=== PATIENT | female | born 1945 | race Caucasian/White ===

== ENCOUNTER 2018-12-23 12:57 | Day surgery (SDC) | payer MEDICARE, OTHER, SELFPAY ==
[2018-12-14 13:00] VITALS: BMI 19.5
[2018-12-23] VITALS (14 sets, daily range): BP systolic 97–149; BP diastolic 34–78; PULSE 61–87; RESP 12–21; TEMP 36.1–37; O2SAT 97–100; BMI 19.9
--- NOTE | 2018-12-23 06:00 | DI.RAD.S_ITS ---
PROCEDURE: XR KNEE RT 1TO2V INDICATIONS: post op films TECHNIQUE: 2 view(s) of the knee acquired. COMPARISON: None. FINDINGS: Bones: Patient is status post knee joint arthroplasty. Hardware components are in expected positions. Visualized bony structures are intact. Soft tissues: Overlying postoperative changes are noted. IMPRESSION: Normal examination after a right total knee arthroplasty. Dictated by: Scott Bansal M.D. on 12/23/2018 at 17:16 Approved by: Scott Bansal M.D. on 12/23/2018 at 17:17
--- NOTE | 2018-12-23 13:26 | P.OP_ITS ---
Operative Date/Time/Diagnoses Date of procedure: 12/23/18 Time of procedure: 15:20 Pre-op diagnosis: Right knee osteoarthritis Post-op diagnosis: same Procedure & Clinicians Procedure: Right total knee arthroplasty Same procedure as scheduled: Yes Indications: The patient presents today for total knee arthroplasty after failure of conservative treatment. The nature of the procedure including the risks and benefits, alternatives, postoperative course and expected outcome were discussed and all questions answered. Consent was obtained. Operative site confirmed and marked. Surgeon: Roderick Mendez Convention Worker: Mayur Galan Anesthesia Type: Spinal and Local Operative Notes Findings: Severe osteoarthritis with varus alignment. Closure Type: primary Specimen(s): none sent Prosthetic devices, grafts, tissues, transplants, or devices: [employer]hew Kari BCS: 5 femoral component, 3 tibial component, 9 mm BCS polyethylene tray and 32 x 9 mm round patella Applied: implant(s) Estimated Blood Loss (mL): 10 Blood products transfused: none Tourniquet time (min): 55 Procedure in detail: The patient was taken to the operative suite and placed un cristian spinal anesthesia. The patient was given prophylactic antibiotics prior to surgery. The patient was also given tranexamic acid, 1 g, just prior to surgery for postoperative hemostasis. The lateral knee was prepped and the joint injected with 20 mL of 1% Lidocaine with epinephrine. The knee was then prepped and draped in usual sterile fashion. The leg was exsanguinated with an Esmarch dressing and the tourniquet raised to 250 torr. A 15 cm anterior incision was made. Next a medial trivector arthrotomy was made. The extensor mechanism was marked to ensure accurate repair. Initial exposing dissection was carried out medially and laterally. The knee was then extended and the patellar thickness was measured and a cut made removing approximately 9 mm of bone. The patella was then sized and drilled. Some excess lateral bone was excised and the patellofemoral ligament released. The knee was then flexed and the intramedullary femoral guide krystin placed. The distal femoral cut was made in 6 ? of valgus at the + 0 position. The femoral size was measured and the appropriate cutting block was then placed and the anterior, posterior and chamfer cuts made. The intramedullary tibial alignment krystin was then placed. The guide was set to remove approximately 10 mm from the less affected lateral side. The proximal tibial cut was then made with an oscillating saw. All meniscus and bony debris was then removed. Posterior femoral osteophytes removed with a curved osteotome. Flexion extension gaps were checked. No specific balancing was required other than routine exposure and removal of osteophytes. The soft tissues were then injected with a combination of 20 mL of half percent Marcaine with epinephrine and 20 mL of Exparel. The trial components were then placed. The knee went into full extension and flexion beyond 120?. There was excellent medial-lateral balance throughout motion. Patellar tracking was excellent. The trial components were removed and the knee was cleansed with Pulsavac irrigation and dried. The final components were cemented with high viscosity vacuum mixed bone cement with antibiotics. The joint was filled with a dilute Betadine solution. The knee was held in extension and the patellar clamped until the cement was fully cured. The knee was then irrigated. The extensor mechanism was closed with 5 interrupted #1 Vicryl sutures and a running Quill suture at 90 degrees of flexion. The joint was then injected with a combination of 1 g of tranexamic acid and 20 mL of quarter percent Marcaine with epinephrine. The subcutaneous tissue was closed with 2 0 Vicryl. The skin was closed with mandie and surgical adhesive. An Aquacel dressing and Cali wrap were then applied. The patient tolerated the procedure well and was returned to recovery room in good condition. Complications: none Post-operative Condition: stable Disposition: PACU Plan for aftercare: [facility] protocol for total knee arthroplasty.
--- NOTE | 2018-12-23 13:26 | PM.PREOP ---
Pre-operative Note Interval Note History & Physical reviewed/Exam performed by Physician: Yes Changes to H&P: No
[2018-12-23] MEDS: MELOXICAM 7.5 MG TABLET 15 MG PO (13:50)
[2018-12-23] MEDS: LACTATED RINGERS 1,000 ML 42 ML IV (13:50)
[2018-12-23] MEDS: PREGABALIN 75 MG CAPSULE PO (13:50)
[2018-12-23] MEDS: ACETAMINOPHEN 325 MG TABLET 975 MG PO ×2 (13:50→17:45)
[2018-12-23] MEDS: CEFAZOLIN 2 GM/100 ML FROZ.PIGGY IV ×2 (14:00→22:28)
[2018-12-23] MEDS: TRANEXAMIC ACID 1,000 MG VIAL 1000 MG INJ (14:10)
[2018-12-23] MEDS: LIDOCAINE 1% W/EPI 20 ML INJ (14:10)
--- NOTE | 2018-12-23 14:19 | SUR.OPER ---
Supine on padded OR bed. Pillow under head, arms secured on padded armboards <90 degree abduction. Safety belt across torso. Non-operative leg secured with tape over blanket over lower leg. Operative leg secured in DeMayo/Bossman positioner. Foam padded brace at thigh of operative leg.
[2018-12-23] MEDS: BUPIVACAINE 0.25% W/ EPI (PF) 20 ML, TRANEXAMIC ACID 1,000 MG, SODIUM CHLORIDE 0.9% 10 ML INJ (14:27)
[2018-12-23] MEDS: BUPIVACAINE 0.25% W/ EPI (PF) 40 ML, BUPIVACAINE LIPOSOME 266 MG, SODIUM CHLORIDE 0.9% ... INJ (14:27)
[2018-12-23] MEDS: SODIUM CHLORIDE IRRIG SOLUTION 250 ML, POVIDONE-IODINE SPONGE STICKS 1 APPLIC IRR (14:28)
[2018-12-23] MEDS: LACTATED RINGERS 1,000 ML 125 ML IV (16:21)
--- NOTE | 2018-12-23 19:40 | PC.NURSE ---
Addendum entered by Mauro Richey R.N. 12/23/18 22:46: pt reports seeing a dog on the wall while nurse was in room changing bedding and tending to bedpan. Patient pointed to clock on the wall and says that puppy looks so sad. Asked if patient saw any other objects in room on ceiling or on the wall and she reported Nope, just you and your three dimensional. Original Note: Patient arrived to floor via bed from surgery. Patient was A&O x4 but was having a hard time recalling the current year. Patient was very troubeled by this as she couldn't understand why she was having such a hard time. Patient was talkative w/ family and staff at bedside. Denies pain, VSS, decreased sensation to BLE due to spinal in surg. Patient was able to recall feeling at mid-upper calf. Patient was unable to wiggle toes or lift legs off bed. Patient is now able to wiggle toes and move feet. Patient still reports minimal feeling greater in RT side then LT. Patient is able to raise LLE off bed but not able to do so with RLE. Patient reports pain at a 2/10 at this time post late tx of APAP (See MAR for details). Call light w/ in reach, bed in low pos. alarm active. Pt aware to use call light w/ needs.
[2018-12-23] MEDS: OXYCODONE IR 5 MG TABLET 10 MG PO (21:09)
[2018-12-23] MEDS: ASPIRIN EC 81 MG TABLET PO (21:10)
[2018-12-24 05:00] VITALS: BP 115/81; PULSE 93; RESP 18; TEMP 36.3; O2SAT 95
[2018-12-24] MEDS: CEFAZOLIN 2 GM/100 ML FROZ.PIGGY IV (05:00)
[2018-12-24] MEDS: IBUPROFEN 400 MG TABLET PO ×2 (05:07→12:21)
[2018-12-24 06:47] LABS: Hematocrit 32.9 % (36-46); Hemoglobin 11.4 g/dL (12.0-16.0)
[2018-12-24 08:00] VITALS: BP 136/73; PULSE 73; RESP 16; TEMP 36.9; O2SAT 97
[2018-12-24] MEDS: ASPIRIN EC 81 MG TABLET PO (08:55)
[2018-12-24] MEDS: ACETAMINOPHEN 325 MG TABLET 975 MG PO ×2 (08:56→14:43)
--- NOTE | 2018-12-24 09:15 | CM.DANOTE ---
DCP: Case received, EMR reviewed and met with patient. Introduced self and role. Was able to converse with patient in her room to obtain health history and baseline activity information prior to surgery. DCP assessment/template completed with information currently available. Patient is a 73 year old female who admitted yesterday morning to the care of the orthopedic team. PCP: Dr. Pedroza at [facility]. Payer: Medicare/[employer] [place]. Patient came to the hospital for a surgical procedure. She had right total knee arthroplasty. Patient has history of right knee osteoarthritis. Patient lives in [place], but will be staying with her [id number]-[id number]-zau and here in [place]. Met with patient in her room, pleasant. She was sitting up in her chair. Clarified with her that she elected to have her surgery here in [place], for her iiuiao-dh-cwp and have a one level home here. She also mentioned that her daughter will also be staying with her. Patient has not used DME supplies prior to surgery, but is using her kiyczq-ql-dhp's walker for mobility post surgery. Patient will go back to [place] after she recovers here in town. She has been driving, and has stairs in her home in [place], which is why she is staying here. She also has a neighbor that can stay with her as well. P: DCP to continue to follow. She has outpatient P.T. set up already here in [place]. She should be able to go home when she is medically stable, and cleared by physical therapy team. Kerri Cespedes RN/[employer] Aide
--- NOTE | 2018-12-24 09:27 | PC.NURSE ---
Addendum entered by Lita Wells R.N. 12/24/18 15:35: DC - after phys therapy, reviewed dc instructions with pt and family member, hep lock dc'd, pt dressed, has clothing, shoes, all belongings gathered, tsf to wc and escorted by job press operator to family car. Addendum entered by Lita Wells R.N. 12/24/18 14:38: MS/PAIN/PT/DC - spoke to ling in PT, pt can be cleared for dc home, PA has put in dc orders, confusion has been clearing throughout day and stated pt safe to go home w/family, scripts filled prior to surgery, given midday dose tylenol prior to phys therapy. Addendum entered by Lita Wells R.N. 12/24/18 12:23: PAIN - after lunch,discussed pain mgt, will continue to avoid narcotic, pain 3 on scale 0/10, given ibuprofen. Addendum entered by Lita Wells R.N. 12/24/18 10:26: MS/PAIN = Up with phys therapy using fww, pain managed with earlier ibuprofen and tylenol, as pt continues to feel a little fuzzy headed, will continue to avoid narcotic. Original Note: AM NOTE - pt is alert, oriented, speech clear, remembers episode last night where she could see a dog's face in room, no halluc currently, denies numbness feet, some residual at incisional, aquacell w/sunshine wrap over cdi, denies nausea, states pain 3 on scale 0/10, discussed medications, narcotics, assisted up w/fww to bsc w/void, no dizziness, then to chair for breakfast, given scheduled tylenol now, will inform RN if pain increases and discussed availability oxycodone, pt has had her medications filled prior to surgery on swipath.
--- NOTE | 2018-12-24 09:35 | PT.IIE ---
Current Diagnoses Bilateral primary osteoarthritis of knee (12/23/18) Surgery Performed Operation Date: 12/23/18 15:15 Actual Procedures p Total Knee Arthroplasty(Right) - Roderick Mendez MD Surgical History (Last Updated 12/14/18 @ 13:31 by Stacie Carrasquillo RN) Hx of appendectomy (Acute) Hx of breast surgery (Acute ~1992) S/P foot surgery, right (Acute ~2015) S/P TRAM (transverse rectus abdominis muscle) flap breast reconstruction (Acute) Medical History (Last Updated 12/14/18 @ 13:27 by Stacie Carrasquillo RN) Anxiety (Acute) Breast cancer, right (Acute ~1992) Cyst (Acute) Glaucoma (Acute) Osteoarthritis (Acute) Raynaud's disease (Acute) Rosacea (Acute) Sleep apnea (Acute) Trigeminal neuralgia (Acute) Physical Therapy Inpatient Evaluation/Re-Eval M1 PT/OT-IP Prior Functional Status Start: 12/24/18 13:09 Freq: NEEDED Status: Active Protocol: Document 12/24/18 09:35 AB (Rec: 12/24/18 13:36 AB [email or web address]) Medical Review Prior Functional Status Medical History Reviewed Yes Communication able to make needs known Mobility and Gait pt stated that she is independent with all mobilities and ambulation without AD Social History Household Members none Living Arrangements House Number of Floors (Floors) One Floor Number of Stairs To Enter/Railing? pt will be staying at her brother/sist-in-law's house: home info regarding brother's house 2 steps to enter with R rail ascending Home Environment Standard Height Toilet,Walk in Shower Home Equipment Front Wheel Walker,Straight Cane,Shower Seat without Backrest,Grab Bars Near Toilet ,Grab Bars In Shower Employment Status Retired Additional Social History Comment pt plans to stay at her brother's house and her brother and gcicrt-ev-gfy will assist pt. pt lives in [place]: has set up outpt PT already M2 PT-IP Current Condition Start: 12/24/18 13:09 Freq: NEEDED Status: Active Protocol: Document 12/24/18 09:35 AB (Rec: 12/24/18 13:36 AB [email or web address]) Physical Therapy Current Condition Current Condition Evaluation Date 12/24/18 Treatment Diagnosis s/p R TKA; difficulty in walking Onset Date 12/23/18 Weight Bearing Status Weight Bearing Status Weight Bear as Tolerated M3 PT-IP Subjective Start: 12/24/18 13:09 Freq: NEEDED Status: Active Protocol: Document 12/24/18 09:35 AB (Rec: 12/24/18 13:36 AB [email or web address]) Subjective Physical Therapy Visit Type Type Initial Evaluation Visit Start Time 09:35 Visit Stop Time 10:52 Total Visit Minutes 77 Number of FAVOR MAKER Visits 0 Physical Therapy Visit Comments Patient Comments pt agreeable to do PT Therapy Pain Assessment Pain When Pain Assessed During Mobility Pain Present Pain Present Pain Reported Location Right Knee Intensity 4 Scale Used Numeric (1 - 10) Pain Management Techniques Timing of Activity with Medications M4 PT-IP Mobility and Gait Start: 12/24/18 13:09 Freq: NEEDED Status: Active Protocol: Document 12/24/18 09:35 AB (Rec: 12/24/18 13:36 AB [email or web address]) PT-Bed Mobility Assessment Supine to Sit Supine to Sit Standby Assistance Sit to Supine Sit to Supine Standby Assistance Scooting Scooting to Edge of Bed Standby Assistance Scooting Up and Down in Bed Standby Assistance PT-Transfer Assessment Sit to and From Stand Sit to and from Stand Standby Assistance,Contact Guard Assistance Equipment Transfer Assistive Device Gait Belt,Front Wheeled Walker Orthotic/Prosthetic Devices or Brace: No Transfers Transfer Destination Bed,Toilet Transfer Technique pt ambulated using FWW Transfer Ability Level of Assist Standby Assistance,Contact Guard Assistance,1 Person Assistance,Use of Upper Extremities Comments Mobility Comments pt with confusion and appears to be anxious. requiring repeated cues for techniques and safety. completed sit <>stand x 5 reps with cues for techniques and safety. pt ambulated to the toilet using FWW SBA to CGA and cues. pt used grab bars to assist. pt was able to complete hygiene care without AD but requires assistance with brief managment. Gait Assessment Gait Gait Assistance Required: Standby Assistance,Contact Guard Assist Distance (Feet) 150 Able to Maintain Weight Bearing Status Yes During Gait Assistive Devices Assistive Device Gait Belt,Front Wheeled Walker Orthotic/Prosthetic Devices or Brace: No Gait Deviations General Gait Pattern Antalgic Factors Limiting Gait Function Factors Limiting Gait Function Decreased Strength,Difficulty Following Directions,Limited Range of Motion,Pain,Poor Balance,Poor Safety Awareness Comments Gait Comments pt completed ambulation using FWW SBA to CGA and cues for safety. Stair Climbing Assessment Evaluation Level of Assist On Stairs Contact Guard Assistance,1 Person Assistance Devices Stair Climbing Assistive Devices Right Railing Technique/Endurance Stair Climbing Direction Ascend and Descend Stair Climbing Technique Step to Step Number of Steps Climbed 3 Query Text: Stair Climbing Set # Repetitions (reps) 1 PT-Balance Assessment Sitting Balance and Reactions Static Sitting Balance Ability Good Dynamic Sitting Balance Ability Good Standing Balance and Reactions Static Standing Balance Ability Fair Dynamic Standing Balance Ability Fair Device Used FWW M5 PT-IP Objective Assessments Start: 12/24/18 13:09 Freq: NEEDED Status: Active Protocol: Document 12/24/18 09:35 AB (Rec: 12/24/18 13:36 AB [email or web address]) Orientation Orientation/Cognition Level of Alertness Alert Orientation Name,Age,Birthday,Month,Date, Year,Day of Week,Place, Situation Safety Awareness Decreased Safety Awareness Memory Description Short Term Impaired Gross Range of Motion Lower Extremity ROM Assessment Within Functional Limits Strength Lower Extremity Strength Assessment Right Impaired Hip 4-/5 Knee 3+/5 Coordination Assessment Gross Coordination Gross Coordination WNL Sensation Assessment Sensation Gross Sensation WNL Muscle Tone Muscle Tone WNL Yes M6 PT-IP Treatment Start: 12/24/18 13:09 Freq: NEEDED Status: Active Protocol: Document 12/24/18 09:35 AB (Rec: 12/24/18 13:36 AB [email or web address]) Physical Therapy Treatment Exercises Exercises Quad Sets,Heel Slides Education Education Provided Precautions,Weight Bearing Status,Post-Op Packet,Safety M7 PT-IP Assessment and Plan Start: 12/24/18 13:09 Freq: NEEDED Status: Active Protocol: Document 12/24/18 09:35 AB (Rec: 12/24/18 13:36 AB [email or web address]) PT Summary Assessment and Plan Potential Rehabilitation Potential Good Status of Condition at Evaluation Stable Summary Impairments Pain,ROM,Strength,Balance, Coordination,Sensation,Tone, Cognition,Bed Mobility, Transfers,Gait,Activity Tolerance Assessment Summary pt requiring SBA to CGA with mobility and cues for all tasks for safety. pt plans to go home with family to assist her. Goals Bed Mobility Goal Independent Transfer Goal Independent,Front Wheeled Walker Gait Goal Independent,Front Wheel Walker Gait Distance 200 Other Goals up/down 2 steps R rail ascending mod I Days to Meet Goals 5 Frequency of Treatment Frequency Of Treatment Twice a Day Treatment Plan Physical Therapy Treatment Plan Bed Mobility Training,Transfer Training,Gait Training, Therapeutic Exercise,Balance Retraining,Post Op Education, Discharge Planning,Hot or Cold Pack,Neuromuscular Re-ed, Coordination Retraining,Manual Therapy Recommendations To Nursing Amount of Assist Needed 1 Person Assist Discharge Recommendations PT Discharge Recommendations Home with Assistance, Outpatient PT
[2018-12-24 11:40] VITALS: BP 144/74; PULSE 76; RESP 16; TEMP 36.8; O2SAT 97
--- NOTE | 2018-12-24 14:19 | P.DS_ITS ---
History of Present Illness History of Present Illness Date Patient Seen: 12/24/18 Time Patient Seen: 11:00 Chief complaint: [id number] Narrative: The patient presents today for total knee arthroplasty after failure of conservative treatment. The nature of the procedure including the risks and benefits, alternatives, postoperative course and expected outcome were discussed and all questions answered. Consent was obtained. Operative site confirmed and marked. post op day 1 s/p right total knee arthroplasty with Dr. Mendez. Overnight staff reported patient saw a dog on the ceiling when taking oxycodone. Discussed incident with patient, I believe there was miscommunication and patient did not hallucinate, informed her to continue oxycodone use but discont inue if she has hallucinations. Pain was well controlled today with ibuprofen and tylenol. Patient ambulating with PT. No complaints Patient denies fever, chills, nausea, vomiting, chest pain, shortness of breath. Discharge Providers Provider Date of admission: 12/23/18 12:57 Discharge Date: 12/24/18 Consults: 12/23/18 16:06 Consult to Discharge Planning Routine Comment: Consult to Physical Therapy Evaluate & Treat Comment: Physician Instructions: postop TKA protocol Consult to Respiratory Therapy Evaluate & Treat Comment: Physician Instructions: Evaluate and treat Discharge provider: Yevgeniy Gore PA-C Summary Hospital Course Discharge Diagnosis: s/p right total knee arthroplasty sleep apnea w/o cpap cancer, breast reynauds disease Hospital Course: Patient admitted for total right knee arthrolplasty with Dr. Mendez. Hospital course was unremarkable. Post op day 1 patient was ready for discharge home. Patient has prescriptions for oxycodone and vistaril at home. Patient eating and voiding without difficulty or assistance prior to discharge. Patient was mobilizing with physical therapy prior to discharge. Patient has outpatient PT scheduled. Dressing was CDI. ASA 81 mg bid for dvt prophylaxis. Status at Discharge Cognitive/behavioral status at discharge: oriented Functional status at discharge: uses cane/walker Overall status at discharge: patient is progressing back to baseline Time Spent with Patient Time spent: Less than 30 minutes Exam Vital Signs (past 8 hours): - 12/24/18 08:00 12/24/18 11:40 Temperature 98.4 F 98.2 F Pulse Rate 73 76 Respiratory Rate 16 16 Blood Pressure 136/73 144/74 H Pulse Oximetry 97 97 Oxygen Delivery Method Room Air Oxygen Flow Rate 0 Narrative Exam Narrative: 73 year old female sitting upright in chair, in no apparent distress. A&Ox3. Dressing CDI on right knee. Patient able to actively d orsiflex/plantar flex. Sensation grossly intact to light touch in LE b/l. Dorsalis pedis 2+ b/l. Cap refill<2 seconds LE b/l. Calves warm, soft, compressible, nttp. Objective Labs Result Diagrams: 12/24/18 06:36 Labs: Laboratory Results - last 24 hr 12/24/18 06:36 Hgb 11.4 L Hct 32.9 L Discharge Plan Discharge Plan Patient Disposition: Home Discharge Med Rec/Prescriptions Prescriptions: New ibuprofen 400 mg tablet 400 mg PO Q4H Qty: 60 RF: 0 acetaminophen [Tylenol Extra Strength] 500 mg tablet 500 mg PO Q4H PRN (Reason: pain) Qty: 60 RF: 0 aspirin 81 mg tablet,delayed release (DR/EC) 81 mg PO BID Qty: 60 RF: 0 Continued fluticasone propionate [Aller-Tarun] 50 mcg/actuation [place],Suspension 1 spray INTRANASAL DAILY PRN (Reason: Seasonal allergy) RF: 0 Naphcon-A 0.025-0.3 % Drops 1 drp EYE-BOTH DAILY PRN (Reason: Dry, itching eyes) RF: 0 Provider Discharge Instructions Diet: Regular Activity: Weight bearing as tolerated. Follow total knee arthroplasty precautions. Cold/Heat Therapy: continue cold/heat therapy as needed. Skin/Wound/Dressing Care Report to your healthcare provider any signs of infection, such as:: chills, fever, increased pain, unusual drainage and unusual redness Dressing: Keep dressing dry. If saturated, please contact the office. Visit Report/Discharge Packet Instructions: DI for Knee Replacement Discharges patient from system. Discharge Date/Time: 12/24/18 15:50 Quality VTE Deep Vein Thrombosis/Pulmonary Embolism Present on Admission: No
--- NOTE | 2018-12-24 14:37 | PT.IPTN ---
Current Diagnoses Bilateral primary osteoarthritis of knee (12/23/18) Surgery Performed Operation Date: 12/23/18 15:15 Actual Procedures p Total Knee Arthroplasty(Right) - Roderick Mendez MD Physical Therapy Treatment Note M2 PT-IP Current Condition Start: 12/24/18 13:09 Freq: NEEDED Status: Discharge Protocol: Document 12/24/18 09:35 AB (Rec: 12/24/18 13:36 AB [id number]) Physical Therapy Current Condition Current Condition Evaluation Date 12/24/18 Treatment Diagnosis s/p R TKA; difficulty in walking Onset Date 12/23/18 Weight Bearing Status Weight Bearing Status Weight Bear as Tolerated M3 PT-IP Subjective Start: 12/24/18 13:09 Freq: NEEDED Status: Discharge Protocol: Document 12/24/18 14:37 AB (Rec: 12/24/18 17:22 AB [id number]) Subjective Physical Therapy Visit Type Type Treatment Note Visit Start Time 14:37 Visit Stop Time 15:09 Total Visit Minutes 32 Number of SALVAGE CUTTER Visits 0 Physical Therapy Visit Comments Patient Comments agreeable to do PT Therapy Pain Assessment Pain When Pain Assessed At Rest Pain Present Pain Present Pain Reported Location Right Knee Intensity 4 Scale Used Numeric (1 - 10) Pain Management Techniques Timing of Activity with Medications M4 PT-IP Mobility and Gait Start: 12/24/18 13:09 Freq: NEEDED Status: Discharge Protocol: Document 12/24/18 14:37 AB (Rec: 12/24/18 17:22 AB [id number]) PT-Bed Mobility Assessment Supine to Sit Supine to Sit Standby Assistance Sit to Supine Sit to Supine Standby Assistance Scooting Scooting to Edge of Bed Standby Assistance Scooting Up and Down in Bed Standby Assistance PT-Transfer Assessment Sit to and From Stand Sit to and from Stand Standby Assistance,1 Person Assistance,Use of Upper Extremities Equipment Transfer Assistive Device Gait Belt,Front Wheeled Walker Orthotic/Prosthetic Devices or Brace: No Transfers Transfer Destination Bed,Chair Transfer Technique Stand Step Pivot Transfer Ability Level of Assist Standby Assistance,1 Person Assistance,Use of Upper Extremities Comments Mobility Comments pt continues to require cues for safety and techniques. continues to have confusion and decrease short term memory . completed sit <>stand x 5 reps and completed with SBA but cues for safety . sister-in- law in room with pt and cued pt when needed. Gait Assessment Gait Gait Assistance Required: Standby Assistance Distance (Feet) 100 Able to Maintain Weight Bearing Status Yes During Gait Assistive Devices Assistive Device Gait Belt,Front Wheeled Walker Orthotic/Prosthetic Devices or Brace: No Gait Deviations General Gait Pattern Antalgic Factors Limiting Gait Function Factors Limiting Gait Function Decreased Activity Tolerance, Decreased Strength,Difficulty Following Directions, Incoordination,Limited Range of Motion,Pain,Poor Balance, Poor Safety Awareness Stair Climbing Assessment Comments Stair Climbing Comments [id number] stated that pt can go from the front of the house and does not have any steps to get in. M5 PT-IP Objective Assessments Start: 12/24/18 13:09 Freq: NEEDED Status: Discharge Protocol: Document 12/24/18 09:35 AB (Rec: 12/24/18 13:36 AB [id number]) Orientation Orientation/Cognition Level of Alertness Alert Orientation Name,Age,Birthday,Month,Date, Year,Day of Week,Place, Situation Safety Awareness Decreased Safety Awareness Memory Description Short Term Impaired Gross Range of Motion Lower Extremity ROM Assessment Within Functional Limits Strength Lower Extremity Strength Assessment Right Impaired Hip 4-/5 Knee 3+/5 Coordination Assessment Gross Coordination Gross Coordination WNL Sensation Assessment Sensation Gross Sensation WNL Muscle Tone Muscle Tone WNL Yes M6 PT-IP Treatment Start: 12/24/18 13:09 Freq: NEEDED Status: Discharge Protocol: Document 12/24/18 14:37 AB (Rec: 12/24/18 17:22 AB [id number]) Physical Therapy Treatment Exercises Exercises Quad Sets,Heel Slides,Seated Knee Flexion/Extension Education Education Provided Safety M7 PT-IP Assessment and Plan Start: 12/24/18 13:09 Freq: NEEDED Status: Discharge Protocol: Document 12/24/18 14:37 AB (Rec: 12/24/18 17:22 AB [id number]) PT Summary Assessment and Plan Potential Rehabilitation Potential Good Summary Impairments Pain,ROM,Strength,Balance, Coordination,Sensation,Tone, Cognition,Bed Mobility, Transfers,Gait,Activity Tolerance Progress Towards Goals Progressing Toward Goals Assessment Summary pt progressing well but continues to require cues for techniques and safety. pt plans to go to her brother's house and family will assist her as needed. pt may go home when medically stable. Goals Bed Mobility Goal Independent Transfer Goal Independent,Front Wheeled Walker Gait Goal Independent,Front Wheel Walker Gait Distance 200 Other Goals up/down 2 steps R rail ascending mod I Days to Meet Goals 5 Frequency of Treatment Frequency Of Treatment Twice a Day Treatment Plan Physical Therapy Treatment Plan Bed Mobility Training,Transfer Training,Gait Training, Therapeutic Exercise,Balance Retraining,Post Op Education, Discharge Planning,Hot or Cold Pack,Neuromuscular Re-ed, Coordination Retraining,Manual Therapy Recommendations To Nursing Amount of Assist Needed 1 Person Assist Discharge Recommendations PT Discharge Recommendations Home with Assistance, Outpatient PT
== END 2018-12-24 15:50 | disposition home or self-care (01) ==
LOC: AC 12-24 14:19 → OR 12-25 10:42
PROVIDERS: Visit Provider Orthopaedic Surgery
PROC: 0SRC0JZ Replacement of Right Knee Joint with Synthetic Substitute, Open Approach (ICD-10-PCS; CPT 27447; principal; 2018-12-23 15:15)
DX: M17.11 Unilateral primary osteoarthritis, right knee (principal); M21.161 Varus deformity, not elsewhere classified, right knee; G47.33 Obstructive sleep apnea (adult) (pediatric); F17.210 Nicotine dependence, cigarettes, uncomplicated
CPT/HCPCS: 27447; 36415; 73560; 85014; 85018; 97116; 97161; 97530; C1776; C9290; J0690; J1100; J2250; J2405; J2704

== ENCOUNTER 2021-01-02 08:38 | Day surgery (SDC) | payer MEDICARE, OTHER, SELFPAY ==
[2018-12-23 16:28] VITALS: BMI 19.9
[2020-12-27 09:47] VITALS: BMI 20.4
[2021-01-02] VITALS (12 sets, daily range): BP systolic 123–161; BP diastolic 63–89; PULSE 14–84; RESP 12–16; TEMP 35.5–36.4; O2SAT 95–100; BMI 20.4
[2021-01-02] MEDS: PREGABALIN 75 MG CAPSULE PO (09:31)
[2021-01-02] MEDS: MELOXICAM 7.5 MG TABLET PO (09:31)
[2021-01-02] MEDS: ACETAMINOPHEN 325 MG TABLET 975 MG PO (09:31)
[2021-01-02] MEDS: LACTATED RINGERS 1,000 ML 42 ML IV ×2 (09:45→12:15)
--- NOTE | 2021-01-02 10:02 | PM.PREOP ---
Pre-operative Note COVID-19 COVID-19 status: Negative Interval Note History & Physical reviewed/Exam performed by Physician: Yes Changes to H&P: No
--- NOTE | 2021-01-02 10:03 | PM.OP.1 ---
Operative Date/Time/Diagnoses Date of procedure: 01/02/21 Time of procedure: 12:25 Pre-op diagnosis: Left knee osteoarthritis Post-op diagnosis: same Procedure & Clinicians Procedure: Left total knee arthroplasty Same procedure as scheduled: Yes Indications: The patient presents today for total knee arthroplasty after failure of conservative treatment. The nature of the procedure including the risks and benefits, alternatives, postoperative course and expected outcome were discussed and all questions answered. Consent was obtained. Operative site confirmed and marked. Surgeon: Roderick Mendez Adjunct Professor Of English: Jyotsna Gutierrez Walker Click Yes if Unassisted: No Anesthesia Type: Spinal, Peripheral nerve block and Local Operative Notes Findings: A +0 distal femoral cut was made. The tibial cut was set at approximately 9 mm off the less affected medial side. The knee was still tight in both flexion and extension. The tibial cutting guide was replaced and another 2 mm was removed. The guide was set to remove slightly more from the lateral side than the medial side. The knee was now well balanced mediolaterally throughout flexion extension. Closure Type: primary Specimen(s): none sent Prosthetic devices, grafts, tissues, transplants, or devices: Wilder and Nephew Kari BCS: 5 femoral component, 3 tibial component, 9 mm BCS polyethylene tray and 32 mm round patella Applied: implant(s) Estimated Blood Loss (mL): 5 Blood products transfused: none Tourniquet time (min): 62 Procedure in detail: The patient was taken to the operative suite and placed under anesthesia. The patient was given prophylactic antibiotics prior to surgery. The patient was also given tranexamic acid, 1 g, just prior to surgery for postoperative hemostasis. The lateral knee was prepped and the joint injected with 20 mL of 1% Lidocaine with epinephrine. The knee was then prepped and draped in usual sterile fashion. The leg was exsanguinated with an Esmarch dressing and the tourniquet raised to 250 torr. A 15 cm anterior incision was made. Next a medial trivector arthrotomy was made. The extensor mechanism was marked to ensure accurate repair. Initial exposing dissection was carried out medially and laterally. The knee was then flexed and the intramedullary femoral guide krystin placed. The distal femoral cut was made in 6? of valgus at the +0 position. The femoral size was measured and the appropriate cutting block was then placed and the anterior, posterior and chamfer cuts made. The intramedullary tibial alignment krystin was then placed. The guide was set to remove approximately 10 mm from the less affected lateral side. The proximal tibial cut was then made with an oscillating saw. All meniscus and bony debris was then removed. Posterior femoral osteophytes removed with a curved osteotome. Flexion extension gaps were checked. The knee was still tight in both flexion extension. The tibia was recut removing approximately 2 more mm, slightly more off the lateral side than the medial side. The knee was then well balanced in flexion and extension. The soft tissues were then injected with a combination of 20 mL of half percent Marcaine with epinephrine and 20 mL of Exparel. The trial components were then placed. The knee was then extended and the patellar thickness was measured and a cut made removing approximately 9 mm of bone. The patella was then sized and drilled. Some excess lateral bone was excised and the patellofemoral ligament released. The knee went into full extension and flexion beyond 130?. There was excellent medial-lateral balance throughout motion. Patellar tracking was excellent. The trial components were removed and the knee was cleansed with Pulsavac irrigation and dried. The final components were cemented with high viscosity vacuum mixed bone cement with antibiotics. The joint was filled with a dilute Betadine solution. The knee was held in extension and the patellar clamped until the cement was adequately cured. The knee was then irrigated. The extensor mechanism was closed with 5 interrupted #1 Vicryl sutures and a running Quill suture at approximately 90 degrees of flexion. The joint was then injected with a combination of 1 g of tranexamic acid and 20 mL of quarter percent Marcaine with epinephrine. The subcutaneous tissue was closed with 2 0 Vicryl. The skin was closed with absorbable subcuticular sutures and surgical adhesive. An Aquacel dressing and Cali wrap were then applied. The patient tolerated the procedure well and was returned to recovery room in good condition. Post-operative Condition: stable Disposition: same day surgery Plan for aftercare: [facility] Protocol. Plan discharge to home later today.
--- NOTE | 2021-01-02 10:30 | DI.RAD.S_ITS ---
PROCEDURE: XR KNEE LT 1TO2V INDICATIONS: S TECHNIQUE: 2views of the knee were acquired. COMPARISON: None. FINDINGS: Bones: Postsurgical changes compatible with left knee arthroplasty. Orthopedic hardware in expected position. Visualized bones are intact. Soft tissues: No joint effusion. No suspicious soft tissue calcifications. IMPRESSION: Expected postsurgical change for left knee arthroplasty. Dictated by: Hallie Jean Baptiste MD, PhD on 01/02/2021 at 16:47 Approved by: Hallie Jean Baptiste MD, PhD on 01/02/2021 at 16:48
--- NOTE | 2021-01-02 10:30 | SUR.PREOP ---
Block start time [1032] . Monitoring initiated and maintained throughout procedure. Oxygen and medications given per anesthesiologist instructions. Patient remained stable throughout procedure, no adverse reactions noted. Block end time [1041].
[2021-01-02] MEDS: fentaNYL 100 MCG/2 ML INJ 50 MCG IV (10:37)
[2021-01-02] MEDS: MIDAZOLAM 2 MG/2 ML VIAL 1 MG IV (10:43)
[2021-01-02] MEDS: CEFAZOLIN 1 GM VIAL 2 GM IV ×2 (10:48→18:51)
[2021-01-02] MEDS: TRANEXAMIC ACID 1,000 MG VIAL 1000 MG INJ ×2 (11:17→11:59)
--- NOTE | 2021-01-02 11:31 | SUR.OPER ---
Supine on padded OR bed. Pillow under head, arms secured on padded armboards <90 degree abduction. Safety belt across torso. Non-operative leg secured with tape over blanket over lower leg. Operative leg secured in DeMayo/Bossman/Nathe positioner. Foam padded brace at thigh of operative leg.
[2021-01-02] MEDS: BUPIVACAINE 0.25% (PF) 30 ML, EPINEPHrine 0.15 MG INJ (11:49)
[2021-01-02] MEDS: BUPIVACAINE 0.25% W/ EPI (PF) 40 ML, BUPIVACAINE LIPOSOME 266 MG, SODIUM CHLORIDE 0.9% ... INJ (12:00)
--- NOTE | 2021-01-02 13:39 | PC.NURSE ---
Day shift: Pt on unit at approx 1335 from PACU. VS WNL. RA 99%. Tolerating SCD's. Denies any pain or nausea. JOSE LUIS wrap and Aquacel CDI. No drains or Arita. Oriented to room and call light. Bed alarm is on and she will be a high fall risk at this time. Hx Alzheimer's but A&Ox4 but slow to answer questions at times. Call light in reach.
[2021-01-02] MEDS: SODIUM CHLORIDE 0.9% 1,000 ML 100 ML IV ×2 (13:55→23:48)
--- NOTE | 2021-01-02 16:25 | PT.IIE ---
Current Diagnoses Unilateral primary osteoarthritis, left knee (01/02/21) Surgery Performed Operation Date: 01/02/21 10:15 Actual Procedures p Total Knee Arthroplasty(Left) - Roderick Mendez MD Medical History (Last Updated 12/27/20 @ 10:12 by Stacie Carrasquillo RN) Alzheimer's dementia (2019) Anxiety Breast cancer, right (~1992) Cyst Glaucoma Osteoarthritis Raynaud's disease Rosacea Sleep apnea Trigeminal neuralgia Physical Therapy Inpatient Evaluation/Re-Eval M1 PT/OT-IP Prior Functional Status Start: 01/02/21 16:56 Freq: NEEDED Status: Active Protocol: Document 01/02/21 15:25 AB (Rec: 01/02/21 17:13 AB [id number]) Medical Review Prior Functional Status Medical History Reviewed Yes Communication able to make needs know but with cognitive issues; pt has dx Alzheimer's dementia and needs step by step cues with all tasks Mobility and Gait pt's [id number] in room and provided info: stated that pt is modified independent with bed mobility, transfers and ambulation withotu AD Social History Household Members children Living Arrangements House Number of Floors (Floors) One Floor Number of Stairs To Enter/Railing? 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 Current Condition Start: 01/02/21 16:56 Freq: NEEDED Status: Active Protocol: Document 01/02/21 15:25 AB (Rec: 01/02/21 17:13 AB [id number]) Physical Therapy Current Condition Current Condition Evaluation Date 01/02/21 Treatment Diagnosis s/p L TKA; difficulty in walking Onset Date 01/02/21 M3 PT-IP Subjective Start: 01/02/21 16:56 Freq: NEEDED Status: Active Protocol: Document 01/02/21 15:25 AB (Rec: 01/02/21 17:13 AB [id number]) Subjective Physical Therapy Visit Type Type Initial Evaluation Visit Start Time 15:25 Visit Stop Time 16:35 Total Visit Minutes 70 Number of FIRE SUPPRESSION CAPTAIN Visits 0 Physical Therapy Visit Comments Patient Comments agreeable to do PT Therapy Pain Assessment Pain Present Pain Present Denied Pain M4 PT-IP Mobility and Gait Start: 01/02/21 16:56 Freq: NEEDED Status: Active Protocol: Document 01/02/21 15:25 AB (Rec: 01/02/21 17:13 AB [id number]) PT-Bed Mobility Assessment Supine to Sit Supine to Sit Contact Guard Assistance PT-Transfer Assessment Sit to and From Stand Sit to and from Stand Moderate Assistance,1 Person Assistance,Use of Upper Extremities Equipment Transfer Assistive Device Gait Belt,Front Wheeled Walker Orthotic/Prosthetic Devices or Brace: No Transfers Transfer Destination Bedside Commode Transfer Technique Stand Step Pivot Transfer Ability Level of Assist Moderate Assistance,Maximum Assistance,1 Person Assistance ,Use of Upper Extremities Comments Mobility Comments BP in supine: 159/76. completed supine to sit CGA and cues. pt required max cues with all tasks and requires increase time to complete task. pt needs to be cleaned up and changed. completed sit to stand mod to max A from EOB and completed step transfer to bedside commode using fWW max A and cues. pt still has decrease trunk and L LE motor control and required max A for steadiness. pt required mod A for sit to stand from bedside commode and mod A for standing balance using FWW while nurse/NAC assist pt with hygiene care and brief management. pt has decrease bladder control and need to void again with every standing . completed step transfer to bed using FWW max A and max cues. pt stated that she wants to go home. informed pt regarding after surgery side effects and currently does not have ful muscle control on trunk and LLE and requiring increase assistance. pt completed sit to stand from EOB mod to max A and max cues and amabulated to the chair ~ 12 ft using FWW max A and max cues. (+) L knee buckling x 3 requiring max A for stability and knee support. pt positioned on chair. call light and table placed within reach. BP at end of tx session : 125/57 informed pt and [id number] that pt is not safe to d/c home today and will re-assess tomorrow. Both pt and sister in law agreed. informed nurse and NAC regarding pt's mobiltiy level of assistance. Gait Assessment Gait Gait Assistance Required: Maximum Assistance,1 Person Assist Distance (Feet) 12 Able to Maintain Weight Bearing Status Yes During Gait Assistive Devices Assistive Device Gait Belt,Front Wheeled Walker Orthotic/Prosthetic Devices or Brace: No Gait Deviations General Gait Pattern Ataxic,Decreased Stride Length ,Decreased Feet Clearance Factors Limiting Gait Function Factors Limiting Gait Function Decreased Activity Tolerance, Decreased Strength,Difficulty Following Directions,Poor Balance,Poor Safety Awareness PT-Balance Assessment Sitting Balance and Reactions Static Sitting Balance Ability Good Dynamic Sitting Balance Ability Good Standing Balance and Reactions Static Standing Balance Ability Poor Dynamic Standing Balance Ability Poor Device Used FWW M5 PT-IP Objective Assessments Start: 01/02/21 16:56 Freq: NEEDED Status: Active Protocol: Document 01/02/21 15:25 AB (Rec: 01/02/21 17:13 AB [id number]) Orientation Orientation/Cognition Level of Alertness Confusional State Orientation Name Safety Awareness Decreased Safety Awareness Memory Description Short Term 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,Record 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 Impaired Gross Range of Motion Lower Extremity ROM Assessment Within Functional Limits Strength Lower Extremity Strength Assessment Left Impaired Hip 4-/5 Knee 3+/5 M6 PT-IP Treatment Start: 01/02/21 16:56 Freq: NEEDED Status: Active Protocol: Document 01/02/21 15:25 AB (Rec: 01/02/21 17:13 AB [id number]) Physical Therapy Treatment Education Education Provided Precautions,Weight Bearing Status,Post-Op Packet,Safety M7 PT-IP Assessment and Plan Start: 01/02/21 16:56 Freq: NEEDED Status: Active Protocol: Document 01/02/21 15:25 AB (Rec: 01/02/21 17:13 AB [id number]) PT Summary Assessment and Plan Potential Rehabilitation Potential Good Status of Condition at Evaluation Evolving Summary Impairments Pain,ROM,Strength,Balance, Coordination,Sensation,Tone, Cognition,Bed Mobility, Transfers,Gait,Activity Tolerance Assessment Summary pt requiring max A with ambulation using FWW and still does not have full motor control of trunk/LLE and with (+) L knee buckling during ambulation requiring max A for stability. pt is not safe to go home today and will reassess tomorrow. Caregiver training set up for tomorrow with pt and [id number] at 9 am. Goals Bed Mobility Goal Standby Assistance Transfer Goal Standby Assistance,Front Wheeled Walker Gait Goal Standby Assistance,Front Wheel Walker Gait Distance 150 Days to Meet Goals 5 Frequency of Treatment Frequency Of Treatment Twice a Day Treatment Plan Physical Therapy Treatment Plan Bed Mobility Training,Transfer Training,Gait Training, Therapeutic Exercise,Balance Retraining,Post Op Education, Discharge Planning,Hot or Cold Pack,Neuromuscular Re-ed, Coordination Retraining,Manual Therapy Other Recommendations and Next Treatment caregiver trainin01/03/21 @ [facility] 9 am Weight Bearing Status Weight Bearing Status Weight Bear as Tolerated Allowed Weight Bearing Amount (enter % LLE WBAT or #) (%) Recommendations To Nursing Amount of Assist Needed 2 Person Assist Discharge Recommendations PT Discharge Recommendations Home with 05/10 Assist Available,Home Health, Outpatient PT Transportation Needs at Discharge Private Vehicle
[2021-01-02] MEDS: DOCUSATE 100 MG CAPSULE PO (20:11)
[2021-01-02] MEDS: ACETAMINOPHEN 325 MG TABLET 650 MG PO (20:11)
[2021-01-02] MEDS: ASPIRIN EC 81 MG TABLET PO (20:11)
[2021-01-03 02:00] VITALS: BP 121/71; PULSE 64; RESP 14; TEMP 36.5; O2SAT 97
[2021-01-03] MEDS: OXYCODONE IR 5 MG TABLET PO ×3 (02:05→08:51)
[2021-01-03] MEDS: CEFAZOLIN 1 GM VIAL 2 GM IV (02:06)
[2021-01-03] MEDS: ONDANSETRON 4 MG/2 ML INJ IV (05:08)
[2021-01-03 05:15] VITALS: BP 145/77; PULSE 78; RESP 18; TEMP 36.2; O2SAT 97
[2021-01-03 07:24] LABS: Hematocrit 29.6 % (36-46); Hemoglobin 9.8 g/dL (12.0-16.0)
[2021-01-03 07:50] VITALS: BP 116/63; PULSE 73; RESP 16; TEMP 35.9; O2SAT 98
[2021-01-03] MEDS: DOCUSATE 100 MG CAPSULE PO (08:51)
[2021-01-03] MEDS: ASPIRIN EC 81 MG TABLET PO (08:51)
[2021-01-03] MEDS: ACETAMINOPHEN 325 MG TABLET 650 MG PO (08:52)
[2021-01-03] MEDS: polyethylene glycoL 3350 17 GM POWD.PACK PO (08:54)
--- NOTE | 2021-01-03 09:01 | CM.DANOTE ---
DCP: Case received, EMR reviewed and met with patient. Introduced self and role. Was able to obtain some information regarding her baseline activity status prior to hospitalization, as well as her current living situation. DCP assessment completed with information currently available. Patient is a 75 year old female who admitted yesterday morning to the care of the orthopedic team. PCP: Dr. Caraballo. Payer: confirmed: Medicare/[employer]. Patient came to the hospital for a surgical procedure. She has left total knee arthroplasty. Patient has history of unilateral osteoarthritis of her knee. Patient also has history of Alzheimers. Met with patient in her room. She is alert and oriented, she is aware that she has Alzheimers. Asked her if she still resided in [place], and she mentioned, she no longer lives there. Asked her if she lives here in [place], and if she lives alone, and indicated, she lives with her daughter and . She no longer drives. According to P.T. notes, patient is a max assist, but will be staying with her sister in law who is a retired physical therapist. P: DCP to continue to follow. Have not yet seen family member in the room. Will collaborate with P.T. during team rounds regarding patient. P.T. will also be working with her again today. Kerri Cespedes RN/Reheat Furnace Operator Discharge Planning/Care Management CM Discharge Assessment Start: 01/03/21 08:58 Freq: Status: Active Protocol: Document 01/03/21 08:59 (Rec: 01/03/21 09:01 [id number]) Discharge Planning Assessment Assigned Customer Solutions Teammate Kerri Cespedes RN/Reheat Furnace Operator Advance Directives? Yes Advance Directives on File No History Provided By Patient,Medical Record Prior Living Arrangements House Household Members children Type of transporation used prior to Relies on Others admit Independent with ADL's Yes Is patient alert and oriented? Yes Needs Assistance With Managing Medications,Home Chores / Shopping Caregiver for Another No Comment Patient is using her sister-in -law's walker, she has not used a walker prior to surgery Patient/Family Preference OP PT Therapy Barriers to Discharge No Comment Patient does have a supportive family. Discharge Plan Home Transportation Arrangement Family Referrals Initiated None needed Whiteboard Updated in Patient Room with Yes name and ext. # of Customer Solutions Teammate Review Status In Process Next Review Type Continued Stay Review Pre-Anesthesia Assessment Start: 12/27/20 09:46 Freq: Status: Complete Protocol: Document 12/27/20 09:47 [facility] (Rec: 12/27/20 10:29 CAB [id number]) Pre-Anesthesia Assessment Preferred Name Cassi Patient Information Reviewed Via Phone Assessment Assessment Completed With Patient,Child Comment PAC completed with daughter Melvi Comment Labs/EKG done w/PCP, not here, COVID screen in [place] 12/31 Primary Care Provider Mauro Caraballo Seen Specialist in Last 12 Months Yes Specialist Seen Orthopedist,Other Comment Neurology Primary Language Albanian Preferred Language Albanian Learning Developer Required No Height 5 ft 3.5 in Weight 117 lb Body Mass Index (BMI) 20.4 Hearing Ability Normal Visual Assist Glasses Dentition Type Teeth, Natural Present Barriers to Learning Cognitive impairment,Memory Other Aids Yes: Mouth guard Hx Anesthesia Reactions No: Would like a spinal Hx Family Anesthesia Reaction Yes: sister-vomiting, diarrhea Hx Malignant Hyperthermia No Hx Blood Transfusions Yes: Autologous blood transfusion s/p breast surgery Hx Blood Transfusion Reaction No Anesthesia Review Requested No alcohol intake current alcohol intake frequency holidays/special occasions only Smoking Status Former smoker how long ago did patient quit smoking Quit in 30's Substance Use Type does not use Pain Present Pain Reported Musculoskeletal Symptoms Abnormal Gait,Difficulty Walking,Joint Pain History of Falling (Recent or History of No ) Patient is completely paralyzed or No completely immobile Mental Status Oriented to own ability Is patient on oxygen? No Does patient have BAILEY/SOB No Hx Sleep Apnea Yes: Does not tolerate CPAP CPAP/BIPAP use prescribed not used Currently Taking a Beta Nadya No Can You Climb a Flight of Stairs Without No SOB Hx Chest Pain No Hx SOB No Hx Syncope or Dizziness No Anti-Coagulant Therapy No Has a Gas Blender No Cardiac Testing No Hx Pacemaker/ICD No Pacemaker Rep Required? No Cardiac Clearance Received Not Applicable Diet Type At Home Regular dysphagia No: Lactose free Bladder Pattern Frequency,Nocturia Urinary Catheter Present No Hx Urinary Self Catheterization No Diabetes No Patient No Lactating No Hx Drug Resistant Organism No Presence of External or Internal Medical Yes: Rt foot, knee Devices Have you had any close contact with No someone diagnosed with COVID-19? Received a COVID vaccine? Yes: 3rd booster - Moderna Received all doses? Yes Marital Status Lives With children Prior Living Arrangements House Support System Family Does the Patient Have Assistance After Yes: Will stay with family in [facility] [place] at [place] Patient Discharge Plan Description Other Comment Pt advised possible same day surgery per surgeon Feels Safe in Current Environment Yes Been Physically Hurt or Threatened By a No Person in Current Environment Do you have thoughts of harming yourself None or others? Are you currently considering suicide? No Do you have a plan to hurt yourself or No Plan others? Do You Have Any Spiritual Beliefs That No May Affect Your HC Choices? Do You Have Any Cultural Practices That No May Affect Your HC Choices? Comment Agnostic Who Can We Speak to About Patient's Care Family, friends Identifying Code for Release of Patient Declines to issue Information Health Care Proxy/Next of Kin Melvi (daughter) Health Care Proxy Emergency Contact Name Melvi (daughter) Emergency Contact Advance Directives? Yes Advance Directives on File No Requested Patient Bring Advanced Yes Directives DOS Power of Bicycle Inspector Yes Power of Bicycle Inspector Name Melvi (daughter) Power of Bicycle Inspector PAC Instructions Do not shave/clip surgical site,Durable medical equipment ,Medications to take/avoid, Nasal antibiotic,No ETOH/ petroleum product on skin DOS, NPO,Pre-surgical wash,Sturdy shoes/comfortable clothes,Do not bring valuables and remove jewelry
--- NOTE | 2021-01-03 09:03 | P.DS_ITS ---
History of Present Illness History of Present Illness Date Patient Seen: 01/03/21 Time Patient Seen: 09:04 Chief complaint: Left knee pain s/p left TKA Narrative: The patient is complaining of mild left knee pain this morning. She was experiencing some nausea yesterday, but this has resolved. Denies any fevers, chills, night sweats. No new numbness or tingling. She worked with physical therapy yesterday, and is hoping to discharge home to her friend's house today. Discharge Providers Provider Discharge Date: 01/03/21 Primary care physician: Mauro Caraballo MD Consults: 01/02/21 08:56 Consult to Anesthesiology Routine Comment: Consulting Provider: Anesthesiologist Reason for consultation: Regional block for post operative pain control 01/02/21 13:35 Consult to Discharge Planning Routine Comment: Consult to Physical Therapy Evaluate & Treat Comment: Physician Instructions: postop TKA protocol Consult to Respiratory Therapy Evaluate & Treat Comment: Physician Instructions: Evaluate and treat Discharge provider: Jyotsna Matias PA-C Summary Hospital Course Discharge Diagnosis: Left knee osteoarthritis Hospital Course: Procedure: Left total knee arthroplasty Same procedure as scheduled: Yes Indications: The patient presents today for total knee arthroplasty after failure of conservative treatment.? The nature of the procedure including the r isks and benefits, alternatives, postoperative course and expected outcome were discussed and all questions answered.? Consent was obtained.? Operative site confirmed and marked. Surgeon: Roderick Mendez Lead Software Tester: Jyotsna Matias Click Yes if Unassisted: No Anesthesia Type: Spinal, Peripheral nerve block and Local Operative Notes Findings: A +0 distal femoral cut was made.? The tibial cut was set at approximately 9? mm off the less affected medial side.? The knee was still tight in both flexion and extension.? The tibial cutting guide was replaced and another 2 mm was removed.? The guide was set to remove slightly more from the lateral side than the medial side.? The knee was now well balanced mediolaterally throughout flexion extension. Closure Type: primary Specimen(s): none sent Prosthetic devices, grafts, tissues, transplants, or devices: Wilder and Nephjaxson nagel BCS: 5 femoral component, 3 tibial component, 9 mm BCS polyethylene tray and 32 mm round patella Applied: implant(s) Estimated Blood Loss (mL): 5 Blood products transfused: none Tourniquet time (min): 62 The patient was admitted to the hospital for a Left Total Knee Arthroplasty for the above listed diagnosis. The patient consented to the procedure, and was taken back to the OR on 01/02/21 . Following the procedure, the patient has been in stable condition, and convalescing appropriately. The patient has successfully worked on mobilizing with physical therapy, and is weight-bearing as tolerated with a front-wheeled walker. Their pain is well controlled with current pain regimen, and both chemical and mechanical DVT prophylaxis have been implemented during their hospital stay. Throughout their time in the hospital, the patient has denied fevers, chills, night sweats, chest pain, shortness of breath, or urinary retention. The patient will be discharged in stable condition today to home. Standard total knee replacement protocols: continue with home exercises as instructed by physical therapist, elevate toes above the nose as needed for swelling; Aspirin 81mg twice daily x6 weeks for DVT prophylaxis. The incision is covered with an Aquacell dressing, which will stay in place until their follow up visit in the office in approximately 10-14 days. Status at Discharge Cognitive/behavioral status at discharge: oriented Functional status at discharge: uses cane/walker Overall status at discharge: patient is progressing back to baseline Exam Vital Signs (past 8 hours): - 01/03/21 02:00 01/03/21 05:15 01/03/21 07:50 Temperature 97.7 F 97.1 F L 96.7 F L Pulse Rate 64 78 73 Respiratory Rate 14 18 16 Blood Pressure 121/71 145/77 H 116/63 Pulse Oximetry 97 97 98 Oxygen Delivery Method Room Air Oxygen Flow Rate 0 Narrative Exam Narrative: Pleasant 75-year-old female, resting comfortably in bed, no acute distress. Her friend is at bedside. Dressing is clean, dry, intact. Bilateral motor function in her lower extremities is grossly intact. She is grossly intact to light touch in bilateral lower extremities. Bilateral calves are soft, nontender to palpation. Objective Labs Result Diagrams: 01/03/21 06:42 Labs: Laboratory Results - last 24 hr 01/03/21 06:42 Hgb 9.8 L Hct 29.6 L [facility] Medical History Alzheimer's dementia (2019) Anxiety Breast cancer, right (~1992) Cyst Glaucoma Osteoarthritis Raynaud's disease Rosacea Sleep apnea Trigeminal neuralgia Surgical History History of right knee joint replacement (12/23/18) Hx of appendectomy Hx of breast surgery (~1992) S/P foot surgery, right (~2015) S/P TRAM (transverse rectus abdominis muscle) flap breast reconstruction Social History household members: children Smoking Status: Former smoker alcohol intake: current Discharge Assessment & Plan Assessment and Plan Assessment: Stable status post left total knee arthroplasty Plan of Treatment: Planning: The patient will be discharged in stable condition today to home to her friend's house today when cleared by PT. Standard total knee replacement protocols: continue with home exercises as instructed by physical therapist, elevate toes above the nose as needed for swelling; Aspirin 81mg twice daily x6 weeks for DVT prophylaxis. The incision is covered with an Aquacell dressing, which will stay in place until their follow up visit in the office in approximately 10-14 days. Discharge Plan Discharge Plan Patient Disposition: Home Discharge orders & Medications Discharge Orders: Discharge (Order); Ordered 01/03/21 Ordered By: Jyotsna Matias Prescriptions: New aspirin 81 mg Tablet,Delayed Release (Dr/Ec) 81 mg PO BID PRN (Reason: X6 weeks to prevent blood clots) Qty: 90 RF: 0 polyethylene glycol 3350 17 gram Powder In Packet 17 g PO DAILY PRN (Reason: Constipation from narcotic pain meds) Qty: 14 RF: 0 oxycodone 5 mg Tablet 5 mg PO Q3HR PRN (Reason: Pain, Moderate (4-6)) Qty: 20 RF: 0 hydroxyzine HCl 25 mg tablet 25 mg PO BID PRN (Reason: Spasms and nausea) Qty: 30 RF: 0 Continued Naphcon-A 0.025-0.3 % Drops 1 drp EYE-BOTH DAILY PRN (Reason: Dry, itching eyes) RF: 0 acetaminophen [Tylenol Extra Strength] 500 mg tablet 500 mg PO Q4H PRN (Reason: pain) Qty: 60 RF: 0 escitalopram oxalate 10 mg Tablet 10 mg PO QNOON RF: 0 memantine 10 mg Tablet 10 mg PO QNOON RF: 0 spironolactone 100 mg Tablet 100 mg PO QNOON RF: 0 Follow up/Referrals: Mauro Caraballo MD [Primary Care Provider] - Roderick Mendez MD [Physician] - 2 Weeks Diet/Activity/Treatments Diet: Regular Activity: Progress weight-bearing and range of motion as tolerated. Cold/Heat Therapy: May ice the knee for 20 minutes at a time as needed for pain and swelling. Other treatments: Use ibuprofen 400 mg (max 2,400mg/day) and Tylenol 500 mg (max 3,000mg/day) every 4 hours in addition to the prescribed pain medication (oxycodone 5mg 1 tab every 4 hours as needed for severe pain; use OTC Miralax as needed from constipation associated with Oxycodone). -aspirin 81 mg twice daily x6 weeks to prevent blood clots Skin/Wound/Dressing Care Report to your healthcare provider any signs of infection, such as:: chills, fever, increased pain, unusual drainage and unusual redness Dressing: Dressing may stay in place until follow-up as long as it remains intact. May shower over dressing. Okay to remove Cali wrap 48 hours after surgery. Visit Report/Discharge Packet Instructions: DI for Knee Replacement Discharge Data Primary Care Provider: Mauro Caraballo Attending Provider: Roderick Mendez Quality VTE Deep Vein Thrombosis/Pulmonary Embolism Present on Admission: No
--- NOTE | 2021-01-03 09:10 | PT.IPTN ---
Current Diagnoses Unilateral primary osteoarthritis, left knee (01/02/21) Surgery Performed Operation Date: 01/02/21 10:15 Actual Procedures p Total Knee Arthroplasty(Left) - Roderick Mendez MD Physical Therapy Treatment Note M2 PT-IP Current Condition Start: 01/02/21 16:56 Freq: NEEDED Status: Discharge Protocol: Document 01/02/21 15:25 AB (Rec: 01/02/21 17:13 AB [id number]) Physical Therapy Current Condition Current Condition Evaluation Date 01/02/21 Treatment Diagnosis s/p L TKA; difficulty in walking Onset Date 01/02/21 M3 PT-IP Subjective Start: 01/02/21 16:56 Freq: NEEDED Status: Discharge Protocol: Document 01/03/21 09:10 AB (Rec: 01/03/21 12:13 AB [id number]) Subjective Physical Therapy Visit Type Type Treatment Note Visit Start Time 09:10 Visit Stop Time 09:46 Total Visit Minutes 36 Number of SMALL BOAT ENGINEER Visits 0 Physical Therapy Visit Comments Patient Comments pt is agreeable to do PT Therapy Pain Assessment Pain When Pain Assessed During Mobility Pain Present Pain Present Pain Reported Location Right Knee Intensity 7 Scale Used Numeric (0 - 10) Pain Management Techniques Apply Cold,Distraction, Modification of Treatment,Re- positioning,Timing of Activity with Medications M4 PT-IP Mobility and Gait Start: 01/02/21 16:56 Freq: NEEDED Status: Discharge Protocol: Document 01/03/21 09:10 AB (Rec: 01/03/21 12:13 AB [id number]) PT-Bed Mobility Assessment Supine to Sit Supine to Sit Standby Assistance PT-Transfer Assessment Sit to and From Stand Sit to and from Stand Contact Guard Assistance,1 Person Assistance,Use of Upper Extremities Equipment Transfer Assistive Device Gait Belt,Front Wheeled Walker Orthotic/Prosthetic Devices or Brace: No Transfers Transfer Destination Chair Transfer Technique ambulated Transfer Ability Level of Assist Minimal Assistance,1 Person Assistance,Use of Upper Extremities Comments Mobility Comments BP in supine: 116/63. completed heel slides prior to getting up. completed supine to sit SBA. pt was able to sit on EOB SBA. pt continues to have difficulty following directions and needs one step cues with all tasks. completed sit to stand min A and cues and ambulated to the chair using FWW min A. caregiver training conducted. sis-in-law was able to put safety belt on pt and assisted pt with sit to stand. completed sit<>stand x 2 reps with cues min A. sister in assisted pt with ambulation in room ~ 40 ft using fWW min A. pt sat back on chair. call light and table placed within reach. Gait Assessment Gait Gait Assistance Required: Minimum Assistance Distance (Feet) 40 Able to Maintain Weight Bearing Status Yes During Gait Assistive Devices Assistive Device Gait Belt,Front Wheeled Walker Orthotic/Prosthetic Devices or Brace: No Gait Deviations General Gait Pattern Antalgic,Decreased Stride Length,Decreased Feet Clearance Factors Limiting Gait Function Factors Limiting Gait Function Decreased Activity Tolerance, Decreased Strength,Difficulty Following Directions,Limited Range of Motion,Pain,Poor Balance,Poor Safety Awareness M5 PT-IP Objective Assessments Start: 01/02/21 16:56 Freq: NEEDED Status: Discharge Protocol: Document 01/02/21 15:25 AB (Rec: 01/02/21 17:13 AB [id number]) Orientation Orientation/Cognition Level of Alertness Confusional State Orientation Name Safety Awareness Decreased Safety Awareness Memory Description Short Term Impaired,Merchandise Planning Manager Impaired Gross Range of Motion Lower Extremity ROM Assessment Within Functional Limits Strength Lower Extremity Strength Assessment Left Impaired Hip 4-/5 Knee 3+/5 M6 PT-IP Treatment Start: 01/02/21 16:56 Freq: NEEDED Status: Discharge Protocol: Document 01/03/21 09:10 AB (Rec: 01/03/21 12:13 AB [id number]) Physical Therapy Treatment Education Education Provided Safety M7 PT-IP Assessment and Plan Start: 01/02/21 16:56 Freq: NEEDED Status: Discharge Protocol: Document 01/03/21 09:10 AB (Rec: 01/03/21 12:13 AB [id number]) PT Summary Assessment and Plan Potential Rehabilitation Potential Good Summary Impairments Pain,ROM,Strength,Balance, Coordination,Sensation,Tone, Cognition,Bed Mobility, Transfers,Gait,Activity Tolerance Assessment Summary caregiver training conducted and pt's sister jo tapia was able to assist pt safely. pt may go home when medically stable. Goals Bed Mobility Goal Standby Assistance Transfer Goal Standby Assistance,Front Wheeled Walker Gait Goal Standby Assistance,Front Wheel Walker Gait Distance 150 Days to Meet Goals 5 Frequency of Treatment Frequency Of Treatment Twice a Day Treatment Plan Physical Therapy Treatment Plan Bed Mobility Training,Transfer Training,Gait Training, Therapeutic Exercise,Balance Retraining,Post Op Education, Discharge Planning,Hot or Cold Pack,Neuromuscular Re-ed, Coordination Retraining,Manual Therapy Weight Bearing Status Weight Bearing Status Weight Bear as Tolerated Allowed Weight Bearing Amount (enter % LLE WBAT or #) (%) Recommendations To Nursing Amount of Assist Needed 1 Person Assist Discharge Recommendations PT Discharge Recommendations Home with 05/10 Assist Available,Outpatient PT Transportation Needs at Discharge Private Vehicle
--- NOTE | 2021-01-03 10:29 | PC.NURSE ---
Day shift: Paperwork signed and all questions answered. Pt's friend in room for d/c teachings. Pt has all personal belongings. Pt also already has MD scripts and they have been filled. Aquacel and JOSE LUIS wrap remain CDI. CMS intact w/ good cap refill. Cleared by PT this AM. Taken to car in . Her friend is driving that car and [employer] took her out. Pt stated I'm very happy to be going home today. Pt also encouraged to drink planty of water and to take stool softeners as directed. Left unit at approx 1030.
== END 2021-01-03 10:38 | disposition home or self-care (01) ==
LOC: OR 12:30 → AC 12:47
PROVIDERS: PCP Internal Medicine; Referring Provider Orthopaedic Surgery; Visit Provider Orthopaedic Surgery
PROC: 0SRD0JZ Replacement of Left Knee Joint with Synthetic Substitute, Open Approach (ICD-10-PCS; CPT 27447; principal; 2021-01-02 10:15)
DX: M17.12 Unilateral primary osteoarthritis, left knee (principal); G47.30 Sleep apnea, unspecified; G30.9 Alzheimer's disease, unspecified; F02.80 Dementia in other diseases classified elsewhere, unspecified severity, without behavioral disturbance, psychotic disturbance, mood disturbance, and anxiety; I73.00 Raynaud's syndrome without gangrene
CPT/HCPCS: 27447; 36415; 64450; 73560; 85014; 85018; 97162; 97530; C1776; C9290; J0171; J0690; J2250; J2405; J2704; J3010